=== PATIENT | male | born 1975 | race Caucasian/White ===

== ENCOUNTER 2016-08-23 08:35 | Emergency (ER) | payer OTHER ==
[2016-08-23 08:47] VITALS: RESP 16
[2016-08-23] MEDS ORDERED: HYDROmorphONE/DILAUDID 1 MG/ML SYR IVP ONE (09:23)
[2016-08-23] MEDS ORDERED: ONDANSETRON 4 MG/2 ML VIAL IVP ONE (09:23)
--- NOTE | 2016-08-23 10:29 | EDPHY ---
H & P Smoking Status: Former smoker Time Seen by Provider: 08/23/16 10:06 HPI/ROS: CHIEF COMPLAINT: Right rib pain HISTORY OF PRESENT ILLNESS: 40-year-old male presents to the emergency department by private vehicle complaining of right-sided rib pain that began on Thursday, 5 days ago. The patient denies any known trauma or injury. States that he was having pain in the right side of his chest. He states that the pain resolved a bit and then it came back now he has pain especially when he tries to take a big deep breath. He denies feeling short of breath. He denies abdominal pain. Denies any reported trauma. He does also have pain in the mid part of his back specially on the right side. No recent travel. No known ill contacts. No pain or swelling in his lower legs. Patient does have a history of chronic back pain. REVIEW OF SYSTEMS: Constitutional: No fever, no chills. Eyes: No double or blurry vision. ENT: No sore throat. Respiratory: Right rib pain as above. No cough, no shortness of breath. Cardiac: No chest pain. Gastrointestinal: No abdominal pain, vomiting or diarrhea. Genitourinary: No dysuria. Musculoskeletal: Right mid back pain. No neck pain. Skin: No rashes. Neurological: No headache. (Yuli Suero M) Past Medical/Surgical History: Chronic back pain (Nimo,Yuli M) Social History: and lives in [place] (Yuli Suero M) Physical Exam: General Appearance: Alert, no distress. 94% on room air, heart rate 74, 142/101 Eyes: Pupils equal and round. Extraocular motions are all intact. ENT: Mouth: Mucous membranes moist. Respiratory: No wheezing, rhonchi, or rales, lungs are clear to auscultation. Patient has reproducible pain with palpation to the right anterior lateral right rib in the mid axillary line around the 7th or 8th rib area. No palpable crepitus or other bony abnormality. Cardiovascular: Regular rate and rhythm. Gastrointestinal: Abdomen is soft and nontender, no masses, no rebound or guarding, bowel sounds normal. No CVA tenderness bilaterally. Neurological: Alert and oriented x 3, cranial nerves II through XII grossly intact Skin: Warm and dry, no rashes. Musculoskeletal: Nontender to palpate along the cervical, thoracic or lumbar spine. Neck is supple. Extremities: Full range of motion and no peripheral edema. With movement of the right upper extremity, he has reproducible pain with the right lateral aspect of his upper chest wall. Psychiatric: Patient is oriented X 3, there is no agitation. (Yuli Suero) Constitutional: Initial Vital Signs Temperature (C) 36.7 C 08/23/16 08:40 Heart Rate 74 08/23/16 08:40 Respiratory Rate 16 08/23/16 08:40 Blood Pressure 142/101 H 08/23/16 08:40 O2 Sat (%) 94 08/23/16 08:40 O2 Delivery Mode Room Air Allergies/Adverse Reactions: No Known Allergies Allergy (Unverified 08/23/16 08:47) Home Medications: Medication Instructions Recorded Diazepam [Valium] 5 mg PO TIDPRN PRN #15 tab 08/23/16 Medical Decision Making ED Course/Re-evaluation: The patient had IV established was initially given IV Dilaudid for pain. Laboratory studies including D-dimer were negative. Chest x-ray was unremarkable. The patient has reproducible pain with palpation to the right anterior lateral aspect of his chest. He also has reproducible pain with movement of the right upper extremity. I doubt this patient has a pulmonary embolism. He does have pleuritic chest pain, however he has reproducible pain with movement as well as palpation. I did discuss the pros and cons of CT pulmonary angiogram and the patient agrees with not obtaining CT scan. Patient was not tachycardic. O2 saturation on room air was 97%. Patient was given 5 mg of Valium IV and 30 mg of Toradol IV and was feeling much better. He can move his upper extremity more freely and was having much less pain. He did not feel short of breath. He felt comfortable being discharged home. (Yuli Suero) Differential Diagnosis: Including but not limited to musculoskeletal pain, pulmonary embolism, muscular spasm, fracture, pneumothorax (Yuli Suero) Other Provider: The patient wasevaluatedand managed by themidlevel provider. Idiscussed the patient's presentation and course with thephysicianassistantor nurse practitionerand agree with theevaluation. My co-signature indicates that I have reviewed this chart and I agree with the findings and plan of care as documented. I am the secondary supervisingphysician. (Pam Vences) - Data Points Laboratory Results: Laboratory Results 08/23/16 09:40 Medications Given: Discontinued Medications Diazepam (Valium Injection) 5 mg IVP EDNOW ONE Stop: 08/23/16 12:26 Last Admin: 08/23/16 12:41 Dose: 5 mg Hydromorphone HCl (Dilaudid) 1 mg IVP EDNOW ONE Stop: 08/23/16 09:24 Last Admin: 08/23/16 09:43 Dose: 1 mg Ketorolac Tromethamine (Toradol) 30 mg IVP EDNOW ONE Stop: 08/23/16 12:03 Last Admin: 08/23/16 12:25 Dose: 30 mg Ondansetron HCl (Zofran) 4 mg IVP EDNOW ONE Stop: 08/23/16 09:24 Last Admin: 08/23/16 09:43 Dose: 4 mg Departure - Departure Disposition: Home, Routine, Self-Care Clinical Impression: Right-sided chest wall pain Condition: Good Instructions: Chest Wall Pain (ED) Additional Instructions: Ibuprofen 600 mg every 8 hours as needed for pain. Valium as needed for muscular spasm. Avoid any heavy lifting. Return if you feel short of breath or if you feel worse in any way. Referrals: Willian Vaz MD [Primary Care Provider] - As per Instructions Prescriptions: Diazepam [Valium] 5 mg PO TIDPRN PRN #15 tab PRN Reason: Spasms
[2016-08-23 10:40] LABS: ANION GAP 12 mEq/L (8-16); CALCIUM 10.3 mg/dL (8.5-10.4); CARBON DIOXIDE 24 mEq/l (22-31); CHLORIDE 106 mEq/L (97-110); CREATININE 1.1 mg/dL (0.7-1.3); GLOMERULAR FILTRATION RATE > 60; GLUCOSE 110 mg/dL (70-100); POTASSIUM 4.5 mEq/L (3.5-5.2); SODIUM 142 mEq/L (134-144)
[2016-08-23] MEDS ORDERED: KETOROLAC 30 MG/1 ML SDV IVP ONE (12:02)
[2016-08-23] MEDS ORDERED: DIAZEPAM 10 MG/2 ML SYR IVP ONE (12:25)
[2016-08-23 14:10] VITALS: BP 121/84; PULSE 70; TEMP 97.3; O2SAT 92
== END 2016-08-23 14:18 | disposition home or self-care (01) ==
DX: R07.89 Other chest pain (principal); Z87.891 Personal history of nicotine dependence
CPT/HCPCS: 96374; J1170; J1885; J2405

== ENCOUNTER → 2016-10-01 | Outpatient (CLI) | payer OTHER | LOC: BMCIMAGING 09:07 | PROVIDERS: ATTEND Registered Nurse General Practice | DX: M51.34 Other intervertebral disc degeneration, thoracic region (principal) ==

== ENCOUNTER → 2017-09-01 | Outpatient (CLI) | payer OTHER ==
[~2017-09-01] MED LIST: IOPAMIDOL (ISOVUE-300) 100 ML BTL ONE
== END ==
LOC: FIMAGING 15:21
PROVIDERS: ATTEND Internal Medicine
DX: J84.10 Pulmonary fibrosis, unspecified (principal)
CPT/HCPCS: Q9967

== ENCOUNTER → 2017-10-08 | Outpatient (CLI) | payer OTHER | LOC: BMCIMAGING 07:16 | PROVIDERS: ATTEND Internal Medicine | DX: R16.0 Hepatomegaly, not elsewhere classified (principal); K76.0 Fatty (change of) liver, not elsewhere classified ==